=== PATIENT | male | born 1995 | race Caucasian/White ===

== ENCOUNTER 2022-08-10 11:08 | Outpatient (CLI) | payer SELFPAY ==
[2022-08-22 16:51] LABS: Stone Source KIDNEY STONE
== END 2022-08-10 11:09 | disposition home or self-care (01) ==
LOC: LAB 11:13
PROVIDERS: Visit Provider Family Medicine
DX: N20.0 Calculus of kidney (principal)
CPT/HCPCS: 82365; 88300